=== PATIENT | male | born 1975 | race Caucasian/White ===

== ENCOUNTER 2018-08-29 16:04 | Emergency (ER) | payer OTHER ==
--- OUTSIDE RECORDS SUMMARY | 2018-08-29 16:37 | XMS REPORT | Continuity of Care Document ---
:1975 External Reference #:[id number] Author Name Daniel Strong D.O. Address [address] [place] [id number] Care Team Providers Name Role Phone HCP given Primary Care Physician Unavailable Payers Type Date Identification Numbers Payment Provider Subscriber Effective: Policy Number: [id number] [employer] (ABRAHAN Walton 2010 MGD) Expires: 2017 PayID: [id number] [address] [address] [place] [address] Policy Number: [id number] [employer] Essential Plan Filiberto Chuck Anton PayID: [id number] [address] [address] [place] [address] Advance Directives Description No Information Available Problems Date Description Provider Status Onset: 06/01/2011 Leslie's palsy Rachel Sorto Active Onset: 06/01/2011 Benign essential hypertension Rachel Sorto Active Onset: 06/01/2011 Allergic rhinitis Rachel Sorto Active Onset: 12/19/2015 Essential hypertension Daniel Strong D.O. 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 Had not been cigarettes/day) smoking for 8 yrs Smoking Status Reviewed: 08/06/18 Heavy tobacco smoker Restarted about 4 (more than 10 months. Had not been cigarettes/day) smoking for 8 yrs Exercise Exercises daily: walks 3-4 Type/Frequency miles daily Sun Exposure Uses sunscreen Seat Belt/Car Seat always uses seat belt Guns in Home Yes, Locked Up Smoke Alarms Yes smoke alarm Allergies, Adverse Reactions, Alerts Date Description Reaction Status Severity Comments 06/01/2011 Penicillins Active Medications Medication Date Status Form Strength Qnty SIG Indications Ordering Provider Advair Diskus 02/26/ Active Aerosol 100-50mcg/ 3units 1 puff 493.90 Violeta, 2013 Dose inhalation Franklin twice a day M.DVamshi Loratadine 11/06/ Active Tablets 10mg 90tabs 1 by mouth 493.90 Silsánchez, 2013 every day Mary Ann Reid Proair HFA 11/06/ Active Aerosol 108(90Base 1units 2 puff J45.909 Ligia, 2013 ) mcg/Act every 4-6 Daniel, hours, as D.O. needed Fluticasone 09/24/ Active Suspension 50mcg/Act 1bottl 2 sprays to J45.20 Silcoff, Propionate 2011 e both luzmaria Reidtrziggy M.DVamshi once daily J30.9 Ondansetron HCL Hx Tablets 4mg 60tabs 1 tab by mouth B34.9 Silcoff, 7 - twice a day as Franklin needed for M.D. 8 nausea Azithromycin Hx Tablets 250mg 6tabs take 2 tablets J20.9 Sopchak, 6 - by mouth one Daniel, time on the D.O. 6 first day then take 1 tablet by mouth daily for 4 days Methylprednisolone Hx Tablets 4mg 21tabs 6 tabs on day 1; J20.9 Sopchak, 6 - then 5 tabs Daniel, day2; then 4 D.O. 6 tabs ay3; then 3 tabs day4; then 2 tabs day 5; then 1 tab day 6 Simvastatin Hx Tablets 20mg 30tabs 1 by mouth every 272.0 Silcoff, 4 - day Franklin, M.D. 7 Simvastatin Hx Tablets 10mg 30tabs take 1 tablet by 272.0 Silcoff, 3 - mouth once daily Franklin, M.D. 4 Hydrochlorothiazide Hx Tablets 25mg 90tabs 1 by mouth every 401.1 Silcoff, 2 - day Franklin, M.D. 6 Simvastatin Hx Tablets 10mg 30tabs 1 po qd 272.0 Silcoff, 2 - Franklin, M.D. 3 Hydrochlorothiazide Hx Tablets 12.5mg 30tabs 1 po qam 401.1 Silcoff, 2 - Franklin, M.D. 2 Singulair Hx Tablets 10mg 30tabs 1 po qd 493.00 Silcoff, 2 - Franklin, M.D. 4 493.90 Metamucil (Or 06/24/2011 - Hx Powder 28.3% 1Container Use as 272.0 Silcoff, Generic-Similar 02/25/2014 labeled qd Franklin, Fiber Supp) M.D. Clear Eyes For 06/01/2011 - Hx Solution 1-0.25% 1Bottle use as 351.0 Silcoff, Dry Eyes 09/17/2011 directed Franklin on bottle M.D. Clarithromycin 10/26/2005 - Hx Tablets 500mg 28tabs 1 PO bid 530.81 klepajoaquim 05/29/2011 For 14 Days. Metronidazole 10/26/2005 - Hx Tablets 500mg 28tabs 1 PO bid 530.81 klepack 05/29/2011 Nasonex 08/06/2005 - Hx Aerosol 50mcg 1units 2 [facility] Intranasal [place] 05/29/2011 In Each Nostril Once A Day Protonix 08/06/2005 - Hx Tablets 40mg 30tabs 1 po qd 789.06 klepack 05/29/2011 Work Note 08/06/2005 - Hx Patient 789.06 klepack 05/29/2011 Seen And Treated Here. Glucometer 10/06/2004 - Hx 1units #1 251.2 Silcoff, 10/24/2004 Mary Ann Reid Use as Directed Glucometer Test 10/06/2004 - Hx 100units Use as 251.2 Silcoff, Strips 10/24/2004 Directed Mary Ann Reid Lancets 10/06/2004 - Hx 100units use as 251.2 Silcoff, 10/24/2004 directed Mary Ann Reid Ibuprofen 08/05/2004 - Hx Tablets 200mg 100tabs 2-4 Tabs Silcoelvie, 05/29/2011 PO Q6H prn Franklin For Pain M.D. Or Fever Filiberto Was Seen 08/05/2004 - Hx Illness rendering 780.6 Silcoff, Today Wit Clancy 08/06/2004 him unable Zaki Reid to work M.D. today. He may require the rest of the week off of work, depending on his clinical course. Clindamycin HCL 04/25/2003 - Hx Capsules 300mg 40caps 1 po qid klepack 05/05/2003 Medications Administered in Office Medication Date Status Form Strength Qnty SIG Indications Ordering Provider TB Intradermal Administered Injection Nurse's Test 018 Schedule Immunizations CPT Code Status Date Vaccine Lot # [id number] Given 03/31/2018 Influenza Virus Vaccine, Quadrivalent, Split, [id number] Preservative Free 94441 Given 05/20/2017 Influenza Virus Vaccine, Quadrivalent, Split, Preservative Free U-Flu Given 04/10/2016 Influenza,Unspecified 93930 Given 12/31/2015 Menactra Menningitis Vaccine [id number] 20448 Given 08/01/2014 Influenza Virus Vaccine, Quadrivalent, Split, [id number] Preservative Free 22458 Given 04/07/2012 Adacel or Boostrix, TDaP [id number] 16520 Given 04/07/2012 Flu, Split Virus 3Yrs [id number] 75739 Given 05/05/2002 MMR Virus Immunization 72083 Given 04/05/2002 MMR Virus Immunization Vital Signs Date Vital Result Comment 08/06/2018 8:40am BP Systolic 116 mmHg BP Diastolic 70 mmHg Height 69.5 inches 5'9.50" Weight 176.00 lb BMI (Body Mass Index) 25.6 kg/m2 03/31/2018 1:47pm BP Systolic 112 mmHg BP Diastolic 82 mmHg Height 69 inches 5'9" Weight 179.00 lb BMI (Body Mass Index) 26.4 kg/m2 03/02/2018 3:53pm BP Systolic 124 mmHg BP Diastolic 70 mmHg Height 69 inches 5'9" Weight 182.00 lb BMI (Body Mass Index) 26.9 kg/m2 06/17/2017 2:32pm BP Systolic 118 mmHg BP Diastolic 70 mmHg Body Temperature 98.5 F Height 69 inches 5'9" Weight 202.00 lb BMI (Body Mass Index) 29.8 kg/m2 06/27/2016 10:36am BP Systolic 120 mmHg BP Diastolic 80 mmHg Body Temperature 98.3 F Height 69.25 inches 5'9.25" Weight 195.00 lb BMI (Body Mass Index) 28.6 kg/m2 12/19/2015 11:06am BP Systolic 118 mmHg BP Diastolic 82 mmHg Heart Rate 82 /min Height 69 inches 5'9" Weight 198.00 lb BMI (Body Mass Index) 29.2 kg/m2 01/25/2015 11:09am BP Systolic 118 mmHg BP Diastolic 72 mmHg Heart Rate 76 /min reg Respiratory Rate 14 /min Height 69.25 inches 5'9.25" Weight 190.00 lb BMI (Body Mass Index) 27.9 kg/m2 08/01/2014 11:22am BP Systolic 126 mmHg BP Diastolic 84 mmHg Height 69 inches 5'9" Weight 191.00 lb BMI (Body Mass Index) 28.2 kg/m2 02/26/2014 10:24am BP Systolic 125 mmHg BP Diastolic 79 mmHg Weight 199.00 lb 11/06/2013 3:14pm BP Systolic 133 mmHg BP Diastolic 82 mmHg Heart Rate 107 /min Height 69.25 inches 5'9.25" Weight 198.00 lb BMI (Body Mass Index) 29.0 kg/m2 11/10/2012 10:54am BP Systolic 146 mmHg BP Diastolic 99 mmHg Heart Rate 100 /min Height 69.25 inches 5'9.25" Weight 195.00 lb BMI (Body Mass Index) 28.6 kg/m2 04/07/2012 8:53am BP Systolic 153 mmHg BP Diastolic 77 mmHg BP Systolic Recheck 130 mmHg BP Diastolic Recheck 86 mmHg Heart Rate 70 /min 75 Weight 193.00 lb 02/26/2012 3:02pm BP Systolic 130 mmHg BP Diastolic 86 mmHg Weight 194.00 lb Last Menstrual Period 0 02/04/2012 3:02pm BP Systolic 148 mmHg BP Diastolic 95 mmHg BP Systolic Recheck 138 mmHg BP Diastolic Recheck 101 mmHg Heart Rate 89 /min 88 Height 69.25 inches 5'9.25" Weight 194.00 lb BMI (Body Mass Index) 28.4 kg/m2 11/25/2011 11:38am BP Systolic 132 mmHg BP Diastolic 80 mmHg Height 69.25 inches 5'9.25" Weight 200.00 lb BMI (Body Mass Index) 29.3 kg/m2 09/25/2011 9:06am BP Systolic 136 mmHg BP Diastolic 96 mmHg BP Systolic Recheck 131 mmHg BP Diastolic Recheck 100 mmHg Weight 200.00 lb Last Menstrual Period 0 08/26/2011 9:35am BP Systolic 120 mmHg BP Diastolic 90 mmHg Weight 200.00 lb 06/24/2011 10:22am BP Systolic 129 mmHg BP Diastolic 108 mmHg BP Systolic Recheck 144 mmHg BP Diastolic Recheck 95 mmHg Heart Rate 78 /min Body Temperature 98.0 F Height 68.75 inches 5'8.75" 06/01/2011 4:41pm BP Systolic 148 mmHg BP Diastolic 87 mmHg BP Systolic Recheck 146 mmHg BP Diastolic Recheck 107 mmHg Heart Rate 86 /min 83 Height 68.75 inches 5'8.75" Weight 198.00 lb BMI (Body Mass Index) 29.4 kg/m2 10/26/2005 3:38pm BP Systolic 120 mmHg BP Diastolic 86 mmHg Height 69 inches 5'9" Weight 180.00 lb BMI (Body Mass Index) 26.6 kg/m2 Last Menstrual Period 0 08/17/2005 1:44pm BP Systolic 138 mmHg BP Diastolic 78 mmHg Height 69 inches 5'9" Weight 177.00 lb BMI (Body Mass Index) 26.1 kg/m2 08/06/2005 1:12pm BP Systolic 140 mmHg BP Diastolic 95 mmHg Body Temperature 97.4 F Height 69 inches 5'9" Weight 177.00 lb BMI (Body Mass Index) 26.1 kg/m2 10/24/2004 10:14am BP Systolic 140 mmHg BP Diastolic 90 mmHg Height 69 inches 5'9" Weight 184.00 lb BMI (Body Mass Index) 27.2 kg/m2 Last Menstrual Period 0 10/06/2004 1:18pm BP Systolic 134 mmHg BP Diastolic 72 mmHg Height 69 inches 5'9" Weight 186.00 lb BMI (Body Mass Index) 27.5 kg/m2 08/05/2004 11:14am Body Temperature 100.2 F Height 69 inches 5'9" Weight 176.00 lb BMI (Body Mass Index) 26.0 kg/m2 Last Menstrual Period 0 Results Test Date Facility Test Result H/L Range Note Lipid Profile 08/08/2018 [facility] Triglycerides 133 mg/dL 1 (Trig/Chol/HDL) [phone] Cholesterol 235 mg/dL 2 HDL Cholesterol 49.8 mg/dL 3 LDL Cholesterol 159 mg/dL 4 Hepatitis C Antibody 08/08/2018 [facility] HCV Index < 0.0 Index [phone] Hepatitis C Antibody Nonreactive Nonreactive HIV 1/2 AB 08/08/2018 [facility] HIV 1 2 Nonreactive Nonreactive 5 Evaluation [phone] Antibody [facility] Inhouse 08/06/2018 In House [facility] Glucose - 6 Ua Bilirubin - Ua Ketones - Ua Specific Grandy 1.025 Ua Blood - Ua PH 6.0 Ua Protein tr Ua Urobilinogen - Ua Nitrite - Ua Leukocytes - Lisbeth Khan 06/17/2017 [facility] Ebv Capsid Ag Positive Negative Comprehensive [phone] IgG Ab Ebv Capsid Ag IgM Ab Negative Negative Lisbeth-Khan Nuclear Antigen Positive Negative Lisbeth-Khan Virus Interp See Comment 7 CMV Igg/Igm 06/17/2017 [facility] Cytomegalovirus IgG Positive Negative 8 [phone] Antibody Cytomegalovirus IgM Antibody Negative Negative Laboratory test finding 06/17/2017 [facility] Monospot Negative Negative 9 [phone] Comp Metabolic Panel 06/17/2017 [facility] Sodium 137 mmol/L N 133- 145 [phone] Potassium 3.7 mmol/L N 3.5-5.0 Chloride 102 mmol/L N 101-111 Co2 Carbon Dioxide 29 mmol/L N 22-32 Anion Gap 6 mmol/L N 2-11 Glucose 99 mg/dL N 70-100 Blood Urea Nitrogen 18 mg/dL N 6-24 Creatinine 0.86 mg/dL N 0.67-1.17 BUN/Creatinine Ratio 20.9 High 8-20 Calcium 9.1 mg/dL N 8.6-10.3 Total Protein 7.0 g/dL N 6.4-8.9 Albumin 4.4 g/dL N 3.2-5.2 Globulin 2.6 g/dL N 2-4 Albumin/Globulin Ratio 1.7 N 1-3 Total Bilirubin 0.90 mg/dL N 0.2-1.0 Alkaline Phosphatase 63 U/L N 34-104 Alt 57 U/L High 7-52 Ast 38 U/L N 13-39 Egfr Non- 97.5 >60 Egfr 125.4 >60 10 CBC Auto Diff 06/17/2017 [facility] White Blood Count 6.7 10^3/uL N 3.5-10.8 [phone] Red Blood Count 5.27 10^6/uL N 4.0-5.4 Hemoglobin 16.5 g/dL N 14.0-18.0 Hematocrit 49 % N 42-52 Mean Corpuscular Volume 92 fL N 80-94 Mean Corpuscular Hemoglobin 31 pg N 27-31 Mean Corpuscular HGB Conc 34 g/dL N 31-36 Red Cell Distribution Width 13 % N 10.5-15 Platelet Count 226 10^3/uL N 150-450 Mean Platelet Volume 8 um3 N 7.4-10.4 Abs Neutrophils 3.8 10^3/uL N 1.5-7.7 Abs Lymphocytes 2.4 10^3/uL N 1.0-4.8 Abs Monocytes 0.4 10^3/uL N 0-0.8 Abs Eosinophils 0.1 10^3/uL N 0-0.6 Abs Basophils 0 10^3/uL N 0-0.2 Abs Nucleated RBC 0 10^3/uL Granulocyte % 56.1 % N 38-83 Lymphocyte % 35.7 % N 25-47 Monocyte % 6.7 % N 1-9 Eosinophil % 1.0 % N 0-6 Basophil % 0.5 % N 0-2 Nucleated Red Blood Cells % 0 Basic Metabolic Panel 08/03/2014 [facility] Sodium 138 mmol/L N 133- 145 [phone] Potassium 4.1 mmol/L N 3.5-5.0 Chloride 101 mmol/L N 101-111 Co2 Carbon Dioxide 31 mmol/L N 22-32 Anion Gap 6 mmol/L N 2-11 Glucose 73 mg/dL N 70-100 Blood Urea Nitrogen 14 mg/dL N 6-24 Creatinine 0.90 mg/dL N 0.67-1.17 BUN/Creatinine Ratio 15.6 N 8-20 Calcium 9.4 mg/dL N 8.6-10.3 Egfr Non- 93.5 N >60 Egfr 120.2 N >60 11 Urine Micro Inhouse 08/01/2014 In House Ua WBC - Ua RBC - Ua Casts - Ua Epi - Ua Other sediment Ua Glucose - Ua Bilirubin - Ua Ketones - Ua Specific Grandy 1.005 Ua Blood - Ua PH 7.5 Ua Protein - Ua Urobilinogen - Ua Nitrite - Ua Leukocytes - Basic Metabolic Panel 11/09/2013 [facility] Sodium 136 mmol/L 133- 145 [phone] Potassium 4.0 mmol/L 3.7-5.6 Chloride 99 mmol/L Low 101-111 Co2 Carbon Dioxide 32 mmol/L 22-32 Anion Gap 5 mmol/L 2-11 Glucose 81 mg/dL 70-100 Blood Urea Nitrogen 12 mg/dL 6-24 Creatinine 0.90 mg/dL 0.67-1.17 BUN/Creatinine Ratio 13.3 8-20 Calcium 9.3 mg/dL 8.6-10.3 Egfr Non- 93.9 >60 Egfr 120.8 >60 12 Lipid Profile 11/09/2013 [facility] Triglycerides 181 mg/dL 13 (Trig/Chol/HDL) [phone] Cholesterol 243 mg/dL 14 HDL Cholesterol 40.5 mg/dL 15 LDL Cholesterol 166 mg/dL 16 Lipid Profile 11/03/2012 [facility] Triglycerides 119 mg/dL 40-200 (Trig/Chol/HDL) [phone] Cholesterol 215 mg/dL High Less than 200 HDL Cholesterol 44 mg/dL 40-60 17 Cholesterol/HDL Ratio 4.9 Average High 1-4.44 LDL Cholesterol 147.2 mg/dL High Less Than 100 18 Basic Metabolic Panel 03/28/2012 [facility] Sodium 137 mmol/L 135- 145 [phone] Potassium 4.0 mmol/L 3.5-5.0 Chloride 99 mmol/L Low 101-111 Co2 (Carbon Dioxide) 31.0 mmol/L 22-32 Anion Gap 7.0 mmol/L 2-11 19 Glucose 86 mg/dL 70-100 BUN 10 mg/dL 6-24 Creatinine 0.9 mg/dL 0.50-1.40 One Over Creatinine 1.11 BUN/Creatinine Ratio 11.1 8-20 Calcium 9.1 mg/dL 8.1-9.9 eGFR Non- 94.9 > 60 eGFR 122.1 > 60 20 Lipid Profile 03/28/2012 [facility] Triglyceride 169 mg/dL 40-200 (Trig/Chol/HDL) [phone] Cholesterol 274 mg/dL High Less Than 200 21 High Density Lipoprotein 39 mg/dL Low 40-60 22 Cholesterol/HDL Ratio 7.03 AVERAGE High 1-4.97 Low Density Lipoprotein 201 mg/dL High Less Than 100 23 Lipid Profile 11/20/2011 [facility] Triglyceride 209 mg/dL High 40- 200 (Trig/Chol/HDL) [phone] Cholesterol 274 mg/dL High Less Than 200 24 High Density Lipoprotein 41 mg/dL 40-60 25 Cholesterol/HDL Ratio 6.68 AVERAGE High 1-4.97 Low Density Lipoprotein 191 mg/dL High Less Than 100 26 CBC Auto Diff 07/29/2011 [facility] White Blood Count 4.8 CUMM 4.8- 10.8 [phone] Red Cell Count 4.95 CUMM 4.6-6.2 Hemoglobin 15.7 g/dL 14.0-18.0 Hematocrit 45 % 42-52 Mean Corpuscular Volume 91 um3 80-94 Mean Corpuscular Hemoglob 32 pg High 27-31 Mean Corpuscular HGB Cone 35 g/dL 32-36 Redcell Distribution WDTH 13 % 10.5-15 Platelet Count 216 CUMM 150-450 Mean Platelet Volume 8.9 um3 7.4-10.4 Gran % 61.4 % 38-83 Lymph % 31.5 % 25-47 Mononuclear % 6.6 % 1-9 Eosinophil % 0.4 % 0-6 Basophil % 0.1 % 0-2 Abs Lymphs 1.5 1.0-4.8 Abs Mononuclear 0.3 0-0.8 Absolute Neutrophil Count 3.0 1.5-7.7 Abs Eosinophils 0 0-0.6 Abs Basophils 0 0-0.2 Comp Metabolic Panel 07/29/2011 [facility] Sodium 141 mmol/L 135- 145 [phone] Potassium 4.3 mmol/L 3.5-5.0 Chloride 101 mmol/L 101-111 Co2 (Carbon Dioxide) 28.0 mmol/L 22-32 Anion Gap 12.0 mmol/L High 2-11 27 Glucose 89 mg/dL 70-100 BUN 12 mg/dL 6-24 Creatinine 0.9 mg/dL 0.50-1.40 One Over Creatinine 1.11 BUN/Creatinine Ratio 13.3 8-20 Calcium 8.8 mg/dL 8.1-9.9 Total Protein 6.5 GM/DL 6.2-8.1 Albumin 3.9 GM/DL 3.6-5.4 Globulin 2.6 GM/DL 2-4 Albumin/Globulin Ratio 1.5 1-3 Bilirubin Total 1.3 mg/dL 0.4-1.5 28 Alkaline Phosphatase 61 U/L 39-117 Alt (SGPT) 30 U/L 17-63 Ast (Sgot) 29 U/L 12-42 eGFR Non- 94.9 > 60 eGFR 122.1 > 60 29 Laboratory test 07/29/2011 [facility] TSH 0.68 MIU/ML 0.34-5.60 finding [phone] Lipid Profile 06/05/2011 [facility] Triglyceride 210 mg/dL High 40- 200 (Trig/Chol/HDL) [phone] Cholesterol 268 mg/dL High Less Than 200 30 High Density Lipoprotein 53 mg/dL 40-60 31 Cholesterol/HDL Ratio 5.06 AVERAGE High 1-4.97 Low Density Lipoprotein 173 mg/dL High Less Than 100 32 H. Pylori Evaluation 08/17/2005 [facility] H. Pylori Iga < 0.8 INDEX <0.80 33 Quantitat [phone] H. Pylori Igg 2.1 INDEX High <0.80 H. Pylori Igm < 0.8 INDEX <0.80 CBC With Electronic 10/06/2004 [facility] White Blood 5.4 CUMM 4.8- 10.8 Diff [phone] Count Abs Basophils 0 0-0.2 Abs Eosinophils 0.1 0-0.6 Abs Grans 3.3 1.5-7.7 Abs Lymphs 1.6 1.0-4.8 Abs Mononuclear 0.4 0-0.8 Basophil % 0.3 % 0-2 Hematocrit 50 % 42-52 Hemoglobin 16.7 g/dL 14.0-18.0 Eosinophil % 0.9 % 0-6 Gran % 61.9 % 38-83 Lymph % 29.6 % 20-45 Mean Corpuscular HGB Cone 34 g/dL 32-36 Mean Corpuscular Hemoglob 31 pg 27-31 Mean Corpuscular Volume 91 um3 80-94 Mean Platelet Volume 8.2 um3 7.4-10.4 Mononuclear % 7.3 % 1-9 Platelet Count 256 CUMM 150-450 Red Cell Count 5.43 CUMM 4.6-6.2 Redcell Distribution WDTH 13 % 10.5-15 Comp Metabolic Panel 10/06/2004 [facility] Anion Gap 7.0 mmol/L 2- 11 34 [phone] Albumin/Globulin Ratio 1.4 1-3 Albumin 4.2 GM/DL 3.6-5.4 Alkaline Phosphatase 65 U/L 39-117 Alt (SGPT) 46 U/L 17-63 Ast (Sgot) 38 U/L 12-42 BUN 13 mg/dL 6-24 Calcium 9.7 mg/dL 8.7-10.2 Chloride 100 mmol/L Low 101-111 Co2 (Carbon Dioxide) 32.0 mmol/L 22-32 Creatinine 0.9 mg/dL 0.5-1.4 Globulin 2.9 GM/DL 2-4 Glucose 91 mg/dL 70-105 Potassium 4.5 mmol/L 3.5-5.0 Sodium 139 mmol/L 135-145 Bilirubin Total 1.3 mg/dL 0.4-1.5 Total Protein 7.1 GM/DL 6.2-8.1 BUN/Creatinine Ratio 14.4 8-20 Laboratory test finding 10/06/2004 [facility] Hemoglobin A1c 5.3 % < 6.0 35 [phone] Insulin 5.1 MU/L 3.0-28.0 36 Laboratory test finding 08/06/2004 In House Culture Strep Group A Throat NEG 1 Desirable: <150 Borderline High: 150-199 High: 200-499 Very High: >500 2 Desirable: <200 Borderline High: 200-239 High: >239 3 Low: <40 Desirable: 40-60 High: >60 4 Desirable: <100 Near Optimal: 100-129 Borderline High: 130-159 High: 160-189 Very High: >189 5 It is recognized that currently available assays for the detection of antibodies to HIV-1 and/or HIV-2 may not detect all infected individuals. HIV antibodies may be undetectable in some stages of the infection and in some clinical conditions. The performance of this assay has not been established for populations of infants or children. Assayed by Chemiluminescence Microparticle Immunoassay on the Siemens Advia Centaur CP. Values obtained with different methods or kits cannot be used interchangeably.The diagnostic specificity of the ADVIA Centaur 1/O/2 Enhanced assay in the low risk population was 99.90% (6052/6058) with a 95% confidence interval of 99.78 to 99.96%. 6 void, clear, dark gold 7 RESULT: Results suggest past infection. ADDITIONAL INFORMATION In most populations, at least 90% of the adult population will have been infected with EBV sometime in the past and therefore, will be positive for anti-VCA/IgG and anti- EBNA. Antibodies to EBNA develop 6-8 weeks after primary infection and remain present for life. Presence of VCA/ IgM antibodies indicates recent primary infection with EBV. Test Performed by: [place] [address] 8 Test Performed by: [facility] [place] [address] 9 Would you like an EBV if Monospot is Negative?: Y 10 Because ethnic data is not always readily available, this report includes an eGFR for both -Americans and non- Americans. The National Kidney Disease Education Program (NKDEP) does not endorse the use of the MDRD equation for patients that are not between the ages of 18 and 70, are , have extremes of body size, muscle mass, or nutritional status, or are non- or non-. According to the National Kidney Foundation, irrespective of diagnosis, the stage of the disease is based on the level of kidney function: Stage Description GFR(mL/min/1.73 m(2)) 1 Kidney damage with normal or decreased GFR 90 2 Kidney damage with mild decrease in GFR 60-89 3 Moderate decrease in GFR 30-59 4 Severe decrease in GFR 15-29 5 Kidney failure <15 (or dialysis) 11 Because ethnic data is not always readily available, this report includes an eGFR for both -Americans and non- Americans. The National Kidney Disease Education Program (NKDEP) does not endorse the use of the MDRD equation for patients that are not between the ages of 18 and 70, are , have extremes of body size, muscle mass, or nutritional status, or are non- or non-. According to the National Kidney Foundation, irrespective of diagnosis, the stage of the disease is based on the level of kidney function: Stage Description GFR(mL/min/1.73 m(2)) 1 Kidney damage with normal or decreased GFR 90 2 Kidney damage with mild decrease in GFR 60-89 3 Moderate decrease in GFR 30-59 4 Severe decrease in GFR 15-29 5 Kidney failure <15 (or dialysis) 12 Because ethnic data is not always readily available, this report includes an eGFR for both -Americans and non- Americans. The National Kidney Disease Education Program (NKDEP) does not endorse the use of the MDRD equation for patients that are not between the ages of 18 and 70, are , have extremes of body size, muscle mass, or nutritional status, or are non- or non-. According to the National Kidney Foundation, irrespective of diagnosis, the stage of the disease is based on the level of kidney function: Stage Description GFR(mL/min/1.73 m(2)) 1 Kidney damage with normal or decreased GFR 90 2 Kidney damage with mild decrease in GFR 60-89 3 Moderate decrease in GFR 30-59 4 Severe decrease in GFR 15-29 5 Kidney failure <15 (or dialysis) 13 Desirable <150 Borderline high 150-199 High 200-499 Very High >500 14 Desirable <200 Borderline high 200-239 High >239 15 Low <40 Desirable: 40-60 High: >60 16 Desirable <100 Near Optimal 100-129 Borderline high 130-159 High 160-189 Very High >189 17 HDL Interpretation: Undesirable: High Risk: Less than 40 MG/DL Desirable: Low Risk: Greater than 60 MG/DL 18 LDL Interpretation: Low Risk Optimal Level: LDL Less than 100 MG/DL Near or Above Optimal: LDL 100-129 MG/DL Borderline High Risk: LDL 130-159 MG/DL High Risk: LDL 160-189 MG/DL Very High Risk: LDL Greater than 189 MG/DL 19 Anion gap measurement may be of limited value in the presence of any alkalosis, especially in a combined acid base disorder. . 20 Because ethnic data is not always readily available, this report includes an eGFR for both -Americans and non- Americans. The National Kidney Disease Education Program (NKDEP) does not endorse the use of the MDRD equation for patients that are not between the ages of 18 and 70, are , have extremes of body size, muscle mass, or nutritional status, or are non- or non-. According to the National Kidney Foundation, irrespective of diagnosis, the stage of the disease is based on the level of kidney function: Stage Description GFR(mL/min/1.73 m(2)) 1 Kidney damage with normal or decreased GFR 90 2 Kidney damage with mild decrease in GFR 60-89 3 Moderate decrease in GFR 30-59 4 Severe decrease in GFR 15-29 5 Kidney failure <15 (or dialysis) 21 CHOLESTEROL INTERPRETATION: Desirable: Less than 200 MG/DL Borderline-High Risk: 200-239 MG/DL High-Risk: 240 MG/DL and over 22 HDL INTERPRETATION: Undesirable: High Risk: Less than 40 MG/DL Desirable: Low Risk: Greater than 60 MG/DL 23 LDL INTERPRETATION: Low Risk Optimal Level: LDL Less than 100 MG/DL Near or Above Optimal: LDL 100-129 MG/DL Borderline High Risk: LDL 130-159 MG/DL High Risk: LDL 160-189 MG/DL Very High Risk: LDL Greater than 189 MG/DL 24 CHOLESTEROL INTERPRETATION: Desirable: Less than 200 MG/DL Borderline-High Risk: 200-239 MG/DL High-Risk: 240 MG/DL and over 25 HDL INTERPRETATION: Undesirable: High Risk: Less than 40 MG/DL Desirable: Low Risk: Greater than 60 MG/DL 26 LDL INTERPRETATION: Low Risk Optimal Level: LDL Less than 100 MG/DL Near or Above Optimal: LDL 100-129 MG/DL Borderline High Risk: LDL 130-159 MG/DL High Risk: LDL 160-189 MG/DL Very High Risk: LDL Greater than 189 MG/DL 27 Anion gap measurement may be of limited value in the presence of any alkalosis, especially in a combined acid base disorder. . 28 A metabolite of Naproxen, O-desmethylnaproxen, has been shown to interfere with the Jendrassik-Katt method for measuring total bilirubin. Samples from patients who have taken Naproxen have shown spurious elevation in total bilirubin levels. 29 Because ethnic data is not always readily available, this report includes an eGFR for both -Americans and non- Americans. The National Kidney Disease Education Program (NKDEP) does not endorse the use of the MDRD equation for patients that are not between the ages of 18 and 70, are , have extremes of body size, muscle mass, or nutritional status, or are non- or non-. According to the National Kidney Foundation, irrespective of diagnosis, the stage of the disease is based on the level of kidney function: Stage Description GFR(mL/min/1.73 m(2)) 1 Kidney damage with normal or decreased GFR 90 2 Kidney damage with mild decrease in GFR 60-89 3 Moderate decrease in GFR 30-59 4 Severe decrease in GFR 15-29 5 Kidney failure <15 (or dialysis) 30 CHOLESTEROL INTERPRETATION: Desirable: Less than 200 MG/DL Borderline-High Risk: 200-239 MG/DL High-Risk: 240 MG/DL and over 31 HDL INTERPRETATION: Undesirable: High Risk: Less than 40 MG/DL Desirable: Low Risk: Greater than 60 MG/DL 32 LDL INTERPRETATION: Low Risk Optimal Level: LDL Less than 100 MG/DL Near or Above Optimal: LDL 100-129 MG/DL Borderline High Risk: LDL 130-159 MG/DL High Risk: LDL 160-189 MG/DL Very High Risk: LDL Greater than 189 MG/DL 33 REFERENCE RANGE FOR H. PYLORI IGG, IGM IGA: LESS THAN 0.8 . . . . . . . NEGATIVE 0.8 - 1.0 . . . . . . . . . BORDERLINE GREATER THAN 1.0 . . . . . POSITIVE PLEASE NOTE HELICOBACTER REFERENCE RANGES 06/30/05 THIS TEST WAS DEVELOPED FROM A COMMERCIAL KIT LABELED "RESEARCH USE ONLY". THE KIT HAS NOT BEEN CLEARED OR APPROVED BY THE [place] FOOD AND DRUG ADMINISTRATION (FDA). THE PERFORMANCE CHARACTERISTICS OF THIS TEST WERE ESTABLISHED THROUGH VALIDATION BY [employer], WHICH IS REGULATED UNDER THE CLINICAL LABORATORY IMPROVEMENT AMENDMENTS OF 1988 ("CLIA") QUALIFIED TO PERFORM HIGH COMPLEXITY CLINICAL TESTING. TEST PERFORMED BY: [employer] [address] [place] [address] 34 Anion gap measurement may be of limited value in the presence of any alkalosis, especially in a combined acid base disorder. . 35 THERAPEUTIC TARGET FOR THE TREATMENT OF DIABETES MELLITUS PATIENTS IS <7% HBA1C, AND IN SELECTIVE PATIENTS <6.0%. PLEASE REFER TO [employer] DIABETIC CARE GUIDELINES FOR FURTHER INFORMATION. 36 TEST PERFORMED BY: [employer] [id number] [place] [address] Procedures Date Code Description Status 03/02/2018 85408 Omt 3 To 4 Body Regions Involved Completed 12/19/2015 46798 Bronchospasm Evaluation Pre & Post Completed 06/24/2011 21454 Electrocardiogram Complete Completed Encounters Type Date Location Provider Dx Diagnosis Office Visit 08/06/2018 Main Office Rachel Sorto Z00.01 Encounter for 8:45a general adult medical exam w abnormal findings M54.5 Low back pain Z13.220 Encounter for screening for lipoid disorders F17.210 Nicotine dependence, cigarettes, uncomplicated Office Visit 03/31/2018 1:20p Main Office Shannon Valentine Z02.89 Encounter for other P.A. administrative examinations Z11.1 Encounter for screening for respiratory tuberculosis Z23 Encounter for immunization Z41.8 Encntr for oth proc for purpose oth [facility] Office Visit 03/02/2018 3:30p Main Office Daniel Strong, Carmela.Laurie M54.5 Low back pain M54.16 Radiculopathy, lumbar region M99.03 Segmental and somatic dysfunction of lumbar region M99.04 Segmental and somatic dysfunction of sacral region M99.05 Segmental and somatic dysfunction of pelvic region Office Visit 06/17/2017 2:15p Main Office Yumiko Bishop, B34.9 Viral infection, PA unspecified A08.4 Viral intestinal infection, unspecified Office Visit 06/27/2016 10:15a Main Office Daniel Strong, J20.9 Acute bronchitis, D.O. unspecified Office Visit 12/19/2015 11:00a Main Office Daniel Strong, J45.20 Mild intermittent D.O. asthma, uncomplicated I10 Essential (primary) hypertension Office Visit 01/25/2015 11:00a Main Office Ankur, 401.1 Hypertension Benign Tonya, RPA-C 272.0 Hypercholesterolemia Pure Office Visit 08/01/2014 11:00a Main Office Ankur, 401.1 Hypertension Benign Tonya, RPA-C 272.0 Hypercholesterolemia Pure 477.9 Rhinitis Allergic Cause Unspec V65.49 Counseling Other Spec V04.81 Need For Prophylactic Vaccination & Inoculation/Influenza V07.2 Prophylactic Immunotherapy 493.90 Asthma Unspec W/O Status Asthmaticus Office Visit 02/26/2014 10:20a Main Office Shannon Valentine 401.1 Hypertension Benign P.A. 272.0 Hypercholesterolemia Pure Office Visit 11/06/2013 3:00p Main Office Shannon Valentine 401.1 Hypertension Benign P.A. 477.9 Rhinitis Allergic Cause Unspec 493.90 Asthma Unspec W/O Status Asthmaticus 272.0 Hypercholesterolemia Pure 724.5 Backache Unspec 351.0 [place] [facility] Office Visit 11/10/2012 Main Office Shannon 272.0 Hypercholesterolemia Pure 11:00a [place], P.A. 401.1 Hypertension Benign 477.9 Rhinitis Allergic Cause Unspec 461.2 Sinusitis Acute Ethmoidal Office Visit 04/07/2012 Main Office Shannon 272.0 Hypercholesterolemia Pure 8:40a [place], P.A. 401.1 Hypertension Benign 477.9 Rhinitis Allergic Cause Unspec V04.81 Need For Prophylactic Vaccination & Inoculation/Influenza V06.1 Iqhnakwxdb-Untdlhu-Hruckwnl Combined (DTaP) V07.2 Prophylactic Immunotherapy Office 02/26/2012 Main Office Siri 272.0 Hypercholesterolemia Pure Visit 3:00p Esther 251.2 Hypoglycemia Other Unspec 564.00 Constipation Unspecified Office Visit 02/04/2012 Main Office Shannon 272.0 Hypercholesterolemia Pure 3:00p [place], P.A. 401.1 Hypertension Benign 477.9 Rhinitis Allergic Cause Unspec Office 11/25/2011 Main Office Siri 272.0 Hypercholesterolemia Pure Visit 11:30a Esther 251.2 Hypoglycemia Other Unspec V65.3 Dietary Surveillance & Counseling Office Visit 09/25/2011 Main Office Shannon 272.0 Hypercholesterolemia Pure 9:00a [place], P.A. 401.1 Hypertension Benign 477.9 Rhinitis Allergic Cause Unspec 493.00 Asthma Extrinsic Unspecified 351.0 [place] [facility] Office 08/26/2011 Main Office Siri, 272.0 Hypercholesterolemia Pure Visit 9:30a Esther 251.2 Hypoglycemia Other Unspec V65.3 Dietary Surveillance & Counseling Office Visit 06/24/2011 10:20a Main Office Shannon Valentine, 401.1 Hypertension Benign P.A. 272.0 Hypercholesterolemia Pure 351.0 [place] [facility] Office Visit 06/01/2011 4:20p Main Office Shannon Valentine P.A. 351.0 [place] P[facility] 401.1 Hypertension Benign 381.01 Otitis Media Serous Acute 477.9 Rhinitis Allergic Cause Unspec Office Visit 11/02/2005 1:15p Main Office [facility] V58.3 Surgical Dressings & Sutures Encounter Office Visit 10/26/2005 3:15p Main Office [facility] 530.81 Esophageal Reflux Office Visit 08/17/2005 1:45p Main Office klepack 477.9 Rhinitis Allergic Cause Unspec 530.81 Esophageal Reflux Office Visit 08/06/2005 1:15p Main Office [facility]pack 477.9 Rhinitis Allergic Cause Unspec 789.06 Pain Abdominal Epigastric Office Visit 10/24/2004 10:45a Main Office Franklin Mcdaniel, 251.2 Hypoglycemia Other M.D. Unspec Office Visit 10/06/2004 1:15p Main Office Franklin Mcdaniel, 251.2 Hypoglycemia Other M.D. Unspec Office Visit 08/05/2004 11:00a Main Office Franklin Mcdaniel, 462 Pharyngitis Acute M.D. 780.6 Fever 786.2 Cough Plan of Treatment Future Appointment(s):09/22/2018 4:45 pm - Daniel Strong D.O. at Main [id number]/17/2017 - Yumiko Bishop, PAB34.9 Viral infection, unspecifiedNew Medication:Ondansetron HCL 4 mg - 1 tab by mouth twice a day as needed for nauseaComments:Likely viral syndrome. Labs as below. Zofran for nausea. Discussed staying hydrated and diet as tolerated. Call if any worse.A08.4 Viral intestinal infection, unspecified
[2018-08-29 18:29] LABS: Influenza A Molecular POSITIVE (Negative)
[2018-08-29] MEDS ORDERED: Ibuprofen TAB* 400 MG PO ONE (19:48)
[2018-08-29] MEDS ORDERED: Oseltamivir CAP* 75 MG CAP PO ONE (19:49)
--- NOTE | 2018-08-29 19:55 | ED ---
HPI Febrile Illness - HPI Summary HPI Summary: Patient is a 43 y/o M presenting to ED with complaints of fever, body aches, nausea, and congestion for the past 1-2 days. He states that he has received flu shot this season. Patient notes that he last took ibuprofen 400 mg at 1400 today, noting that ibuprofen provides relief in Sx. No PMHx, FMHx of HTN in grandfather. On triage, pain is rated 5/10. Home medications and allergies are reviewed. - History of Current Complaint Chief Complaint: EDFluSymptoms Time Seen by Provider: 08/29/18 19:47 Hx Obtained From: Patient Onset/Duration: Started Days Ago - 1-2 days ago, Still Present Timing: Constant, Lasting Days - 1-2 days ago Current Severity: Moderate - 5/10 Pain Intensity: 5 Pain Scale Used: 0-10 Numeric - 5/10 Aggravating Factors: Nothing Alleviating Factors: OTC Medicine - ibuprofen Associated Signs and Symptoms: Nausea, Other: - body aches, fever, congestion are endorsed. - Allergy/Home Medications Allergies/Adverse Reactions: Allergies Allergy/AdvReac Type Severity Reaction Status Date / Time Penicillins Allergy Fever Verified 08/29/18 16:25 PMH/Surg Hx/FS Hx/Imm Hx Endocrine/Hematology History: Denies: Hx Diabetes Sensory History: Denies: Hx Legally Blind, Hx Deafness Opthamlomology History: Denies: Hx Legally Blind EENT History: Denies: Hx Deafness Infectious Disease History: No Infectious Disease History: Denies: Traveled Outside the [place] in Last 30 Days - Family History Known Family History: Positive: Hypertension - grandfather - Social History Alcohol Use: None Substance Use Type: Reports: None Smoking Status (MU): Heavy Every Day Tobacco Smoker Type: Cigarettes Review of Systems Constitutional: Other - POSITIVE - BODY ACHES Positive: Fever ENT: Other - POSITIVE - CONGESTION Positive: Nausea All Other Systems Reviewed And Are Negative: Yes Physical Exam - Summary Physical Exam Summary: VITAL SIGNS: Reviewed. GENERAL: Patient is a well-developed and nourished male who is lying comfortable in the stretcher. Patient is not in any acute respiratory distress. HEAD AND FACE: No signs of trauma. No ecchymosis, hematomas or skull depressions. No sinus tenderness. EYES: PERRLA, EOMI x 2, No injected conjunctiva, no nystagmus. EARS: Hearing grossly intact. Ear canals and tympanic membranes are within normal limits. MOUTH: Oropharynx within normal limits. NECK: Supple, trachea is midline, no adenopathy, no JVD, no carotid bruit, no c- spine tenderness, neck with full ROM. CHEST: Symmetric, no tenderness at palpation LUNGS: Clear to auscultation bilaterally. No wheezing or crackles. CVS: Regular rate and rhythm, S1 and S2 present, no murmurs or gallops appreciated. ABDOMEN: Soft, non-tender. No signs of distention. No rebound no guarding, and no masses palpated. Bowel sounds are normal. EXTREMITIES: FROM in all major joints, no edema, no cyanosis or clubbing. NEURO: Alert and oriented x 3. No acute neurological deficits. Speech is normal and follows commands. SKIN: Dry and warm Triage Information Reviewed: Yes Vital Signs On Initial Exam: Initial Vitals Temp Pulse Resp BP Pulse Ox 97.8 F 115 16 136/78 96 08/29/18 16:22 08/29/18 16:22 08/29/18 16:22 08/29/18 16:22 08/29/18 16:22 Vital Signs Reviewed: Yes Diagnostics - Vital Signs Vital Signs Temp Pulse Resp BP Pulse Ox 08/29/18 19:25 99.2 F 101 20 121/75 97 08/29/18 18:12 98.7 F 102 16 116/79 97 08/29/18 16:22 97.8 F 115 16 136/78 96 - Laboratory Lab Results: Lab Results 08/29/18 Range/Units 18:23 Influenza A (Rapid) Positive A (Negative) Lab Statement: Any lab studies that have been ordered have been reviewed, and results considered in the medical decision making process. Course/Dx - Course Course Of Treatment: Patient is a 43 y/o M presenting to ED with complaints of fever, body aches, nausea, and congestion for the past 1-2 days. He states that he has received flu shot this season. Patient notes that he last took ibuprofen 400 mg at 1400 today, noting that ibuprofen provides relief in Sx. No PMHx, FMHx of HTN in grandfather. Physical exam is unremarkable. Patient was positive for influenza A. During ED course, patient was given Tamiflu 75 mg PO ONCE and Motrin Tab 800 mg PO ONCE. He will be discharged to home and follow up with PCP. He is agreeable with this plan. - Diagnoses Provider Diagnoses: Influenza A Discharge - Sign-Out/Discharge Documenting (check all that apply): Patient Departure - discharge Patient Received Moderate/Deep Sedation with Procedure: No - NO PROCEDURES DONE - Discharge Plan Condition: Stable Disposition: HOME Prescriptions: Ibuprofen TAB* [Motrin TAB* 800 MG] 800 mg PO Q6H PRN #30 tab PRN Reason: Fever/Pain Oseltamivir CAP* [Tamiflu CAP*] 75 mg PO BID #10 cap Patient Education Materials: Influenza (ED) Referrals: Franklin Mcdaniel MD [Primary Care Provider] - 2 Days Additional Instructions: RETURN TO EMERGRENCY DEPARTMENT FOR ANY NEW OR WORSENING SYMPTOMS. FOLLOW UP WITH PRIMARY CARE PHYSICIAN IN 1-2 DAYS. - Attestation Statements Document Initiated by Scribe: Yes Documenting Scribe: ALEIDA MENDOZA Provider For Whom Scribe is Documenting (Include Credential): SARBJIT CRAFT MD Scribe Attestation: ALEIDA Crain , scribed for SARBJIT CRAFT MD on 08/29/18 at 2007. Status of Scribe Document: Ready
[2018-08-29 20:05] VITALS: BP 126/86
== END 2018-08-29 20:04 | disposition home or self-care (01) ==
LOC: ED 16:04
DX: J10.1 Influenza due to other identified influenza virus with other respiratory manifestations (principal); Z88.0 Allergy status to penicillin; F17.210 Nicotine dependence, cigarettes, uncomplicated
CPT/HCPCS: 99282; A9270-GY

== ENCOUNTER 2019-01-27 22:48 | Emergency (ER) | payer OTHER ==
--- NOTE | 2019-01-28 00:09 | ED ---
Influenza-Like Illness - HPI Summary HPI Summary: 43-year-old male presents with 5-6 day history of general malaise, body aches, nasal congestion, sinus pressure, mild sore throat, and a dry nonproductive cough. Symptoms associated with persistent low-grade fever of 100 F. States has taken Mucinex and ibuprofen with minimal relief in symptoms. has been ill with similar symptoms. Denies ear pain, dysphagia, chest pain, shortness of breath, abdominal pain, nausea, vomiting, or diarrhea. - History of Current Complaint Chief Complaint: EDGeneral Time Seen by Provider: 01/27/19 23:27 Hx Obtained From: Patient - Allergy/Home Medications Allergies/Adverse Reactions: Allergies Allergy/AdvReac Type Severity Reaction Status Date / Time Penicillins Allergy Fever Verified 08/29/18 16:25 PMH/Surg Hx/FS Hx/Imm Hx Previously Healthy: Yes - Denies significant PMH Endocrine/Hematology History: Denies: Hx Diabetes Sensory History: Denies: Hx Legally Blind, Hx Deafness Opthamlomology History: Denies: Hx Legally Blind - Surgical History Surgical History: None Infectious Disease History: No Infectious Disease History: Denies: Traveled Outside the [place] in Last 30 Days - Family History Known Family History: Positive: Hypertension - grandfather - Social History Occupation: Employed Full-time Lives: With Family Alcohol Use: None Substance Use Type: Reports: None Smoking Status (MU): Heavy Every Day Tobacco Smoker Type: Cigarettes Review of Systems Positive: Fever, Chills Negative: Drainage, Erythema Positive: Sore Throat, Nasal Discharge. Negative: Ear Ache Negative: Palpitations, Chest Pain Positive: Cough. Negative: Shortness Of Breath Negative: Abdominal Pain, Vomiting, Diarrhea, Nausea Genitourinary: Negative Positive: Myalgia Negative: Rash Neurological: Negative All Other Systems Reviewed And Are Negative: Yes Physical Exam - Summary Physical Exam Summary: GENERAL APPEARANCE: Well developed, well nourished, alert and cooperative, and appears to be in no acute distress. EYES: Conjunctiva clear. No drainage. EARS: External auditory canals and tympanic membranes clear, hearing grossly intact. NOSE: Moderate nasal congestion with mucosal erythema and edema. No nasal discharge. Maxillary sinus tenderness. THROAT: Pharyngeal cobblestoning. Post-nasal discharge. No tonsilar inflammation , swelling, exudate, or lesions. Uvula midline. Oral cavity normal. Teeth and gingiva in good general condition. NECK: Neck supple, non-tender without lymphadenopathy. CARDIAC: Normal S1 and S2. No S3, S4 or murmurs. Rhythm is regular. There is no peripheral edema, cyanosis or pallor. Extremities are warm and well perfused. Capillary refill is less than 2 seconds. Peripheral pulses intact. LUNGS: Clear to auscultation without rales, rhonchi, wheezing or diminished breath sounds. Dry non-productive cough. ABDOMEN: Positive bowel sounds. Soft, nondistended, nontender. No guarding or rebound. No masses or hepatosplenomegally. MUSKULOSKELETAL: ROM intact to all extremities. No joint erythema or tenderness. Normal muscular development. Normal gait. SKIN: Skin normal color, texture and turgor with no lesions or eruptions. Triage Information Reviewed: Yes Vital Signs On Initial Exam: Initial Vitals Temp Pulse Resp BP Pulse Ox 98.6 F 100 18 147/99 95 01/27/19 22:55 01/27/19 22:55 01/27/19 22:55 01/27/19 22:55 01/27/19 22:55 Vital Signs Reviewed: Yes Diagnostics - Vital Signs Vital Signs Temp Pulse Resp BP Pulse Ox 01/27/19 22:55 98.6 F 100 18 147/99 95 - Laboratory Lab Statement: Any lab studies that have been ordered have been reviewed, and results considered in the medical decision making process. Flu Symptom Course/Dx - Course Course Of Treatment: 43-year-old male presents with 5-6 day history of general malaise, body aches, nasal congestion, sinus pressure, mild sore throat, and a dry nonproductive cough. Symptoms associated with persistent low-grade fever of 100 F. States has taken Mucinex and ibuprofen with minimal relief in symptoms. has been ill with similar symptoms. Denies ear pain, dysphagia , chest pain, shortness of breath, abdominal pain, nausea, vomiting, or diarrhea. Afebrile. Hypertensive otherwise vital signs stable. Patient had an moderate nasal congestion with mucosal erythema and edema, maxillary sinus tenderness, pharyngeal cobblestoning with postnasal drip, a dry nonproductive cough, and otherwise unremarkable exam. With his persistent fever will treat for a bacterial sinusitis with doxycycline 100 mg twice a day 7 days as well as recommend symptomatic treatment. He was given the first dose of antibiotic in the emergency room. He is to follow-up with his primary care provider in 3- 5 days if symptoms are not improving. Anticipatory guidance and warning symptoms reviewed with the patient. Verbalizes understanding and agrees with plan of care. - Diagnoses Differential Diagnosis/HQI/PQRI: Positive: Bronchitis, Influenza, Pneumonia, Upper Respiratory Infection Provider Diagnoses: Viral upper respiratory infection Discharge - Sign-Out/Discharge Documenting (check all that apply): Patient Departure Patient Received Moderate/Deep Sedation with Procedure: No - Discharge Plan Condition: Stable Disposition: HOME Prescriptions: Doxycycline Hyclate 100 mg PO BID #14 tablet Patient Education Materials: Upper Respiratory Infection (ED) Referrals: Franklin Mcdaniel MD [Primary Care Provider] - 3 Days Additional Instructions: Your history and exam are consistent with a sinus infection. We will start you on an antibiotic to treat the infection. Take doxycycline 100 mg 1 tab twice a day for 7 days. We gave you the first dose in the emergency room. Drink plenty of fluids to avoid dehydration especially if you are running any fever. Use a saline rinse kit such as Neti Pot or NeilMed at least twice a day to help thin secretions and promote drainage of the sinuses. Use fluticasone (Flonase) nasal spray 2 sprays each nostril once daily. Use over the counter decongestant such as Sudafed to help with the congestion. Take over the counter acetaminophen (Tylenol) or ibuprofen (Advil, Motrin) according to directions as needed for pain or fever. Use salt water gargles several times a day if you have a sore throat. You may also use Chloraseptic spray or Cepacol lonzenges according to directions which contain a numbing medication and can provide some temporary relief from your sore throat. Follow up with your primary care provider in 3-5 days if symptoms persist. Seek immediate medical attention in the emergency room if you have fever greater than 100.5 F despite taking acetaminophen or ibuprofen, have chest pain , difficulty breathing, are unable to swallow, or have any worsening of symptoms. - Billing Disposition and Condition Condition: STABLE Disposition: Home
[2019-01-28] MEDS ORDERED: DOXYcycline CAP(*) 100 MG PO ONE (00:57)
[2019-01-28 01:22] VITALS: BP 152/88
== END 2019-01-28 01:21 | disposition home or self-care (01) ==
LOC: ED 22:48
DX: B34.9 Viral infection, unspecified (principal); R50.9 Fever, unspecified; R05 Cough; F17.210 Nicotine dependence, cigarettes, uncomplicated; Z88.0 Allergy status to penicillin
CPT/HCPCS: 99282; A9270-GY